=== PATIENT | male | born 1995 | race Two or more races ===

== ENCOUNTER 2020-02-27 23:04 | Emergency (ER) | payer SELFPAY ==
[~2020-02-27] VITALS: Ht 165.1 cm; Wt 81.1 kg
[2020-02-27 23:10] VITALS: BP 124/88
== END 2020-02-28 01:02 ==
LOC: ED 02-28 00:30
DX: H10.33 Unspecified acute conjunctivitis, bilateral (principal); J30.81 Allergic rhinitis due to animal (cat) (dog) hair and dander
CPT/HCPCS: 99283